=== PATIENT | female | born 1980 | race Caucasian/White ===

== ENCOUNTER → 2018-09-12 | Outpatient (CLI) | payer OTHER | LOC: EMCIMAGING 08:42 | PROVIDERS: ATTEND Hospitalist | DX: N63.20 Unspecified lump in the left breast, unspecified quadrant (principal); N64.52 Nipple discharge; Z80.3 Family history of malignant neoplasm of breast | CPT/HCPCS: 77066-PN ==

== ENCOUNTER → 2018-09-20 | Outpatient (CLI) | payer OTHER | LOC: FIMAGING 09:39 ==